=== PATIENT | male | born 1975 | race Caucasian/White ===

== ENCOUNTER 2020-10-27 07:07 | Outpatient (CLI) | payer BC ==
[~2020-10-27] VITALS: Ht 185.5 cm; Wt 90.9 kg
== END 2020-10-28 12:13 | disposition home or self-care (01) ==
LOC: PREOP 07:07
PROVIDERS: ATTEND Otolaryngology Otolaryngology/Facial Plastic Surgery
DX: Z01.818 Encounter for other preprocedural examination (principal)

== ENCOUNTER 2020-11-04 06:04 | Day surgery (SDC) | payer BC ==
[~2020-11-04] VITALS: Ht 185.5 cm; Wt 90.9 kg
[2020-11-04] VITALS (10 sets, daily range): BP systolic 118–143; BP diastolic 80–97
[2020-11-04] MEDS: LACTATED RINGERS 1,000 ML IV PRN ×2 (06:31→08:36)
[2020-11-04 06:40] LABS: BASOPHILS % (AUTO) 0 % (0-10); EOSINOPHILS # (AUTO) 0.1 10^3/uL (0.0-0.3); EOSINOPHILS % (AUTO) 2 % (0-10); HEMATOCRIT 45 % (40-54); HEMOGLOBIN 15.8 g/dL (13.3-17.7); LYMPHOCYTES # (AUTO) 2.8 10^3/uL (1.0-4.0); LYMPHOCYTES % (AUTO) 33 % (12-44); MEAN CORPUSCULAR HEMOGLOBIN 32 pg (25-34); MEAN CORPUSCULAR HGB CONC 35 g/dL (32-36); MEAN CORPUSCULAR VOLUME 90 fL (80-99); MONOCYTES # (AUTO) 0.7 10^3/uL (0.0-1.0); MONOCYTES % (AUTO) 9 % (0-12); NEUTROPHILS # (AUTO) 4.8 10^3/uL (1.8-7.8); NEUTROPHILS % (AUTO) 56 % (42-75); PLATELET COUNT 286 10^3/uL (130-400); WHITE BLOOD COUNT 8.5 10^3/uL (4.3-11.0)
[2020-11-04] MEDS ORDERED: SEVOFLURANE (ULTANE) 15 ML INHAL SOLN ONE (06:46)
[2020-11-04] MEDS ORDERED: proPOfol 200 MG/20 ML (DIPRIVAN) VIAL IV ONE (06:46)
[2020-11-04] MEDS ORDERED: MIDAZOLAM 2 MG/2 ML (VERSED) VIAL ONE (06:46)
[2020-11-04] MEDS ORDERED: ROCURONIUM 10 MG/ML 5 ML SYRINGE IV ONE (06:46)
[2020-11-04] MEDS ORDERED: ONDANSETRON 4 MG/2 ML (SDV) Z0FRAN ONE (06:46)
[2020-11-04] MEDS ORDERED: fentaNYL INJ 100 MCG/2 ML AMP ONE (06:47)
[2020-11-04] MEDS ORDERED: LIDOCAINE PF 2% 5 ML (XYLOCAINE) VIAL ONE (06:47)
--- NOTE | 2020-11-04 06:57 | Progress Note-Pre Operative ---
Pre-Operative Progress Note H&P Reviewed The H&P was reviewed, patient examined and no changes noted. Date Seen by Provider: Nov 04, 2020 Time Seen by Provider: 06:30 Date H&P Reviewed: Nov 04, 2020 Time H&P Reviewed: 06:30 Pre-Operative Diagnosis: Deviated Nasal Septum, Bilat Hyper of INf Turbs PHILOMENA BEYER MD Nov 04, 2020 06:57
[2020-11-04] MEDS ORDERED: BSS 15 ML ONE (07:06)
[2020-11-04] MEDS ORDERED: LIDOCAINE/EPI 1%-1:100,000 (XYLOCAINE) 20ML ONE (07:06)
[2020-11-04] MEDS ORDERED: PHENYLEPHRINE 0.5% NASAL SPR (NEO-SYNEPHRINE) REG ONE (07:06)
[2020-11-04] MEDS ORDERED: COCAINE HCL 4% 2 ML SYR ONE (07:06)
[2020-11-04] MEDS ORDERED: PHENYLEPHRINE 100 MCG/ML 10 ML (ANESTHESIA) SYR ONE (08:02)
[2020-11-04] MEDS ORDERED: NEOSTIGMINE 3 MG/3 ML VIAL ONE (08:12)
[2020-11-04] MEDS ORDERED: GLYCOPYRROLATE 0.2 MG/ML (ROBINUL) 2 ML VIAL ONE (08:12)
--- NOTE | 2020-11-04 08:24 | Progress Note-Post Operative ---
Post-Operative Progess Note Surgeon (s)/Apparel Merchandiser (s) Surgeon PHILOMENA BEYER MD Apparel Merchandiser n/a Pre-Operative Diagnosis Deviated Nasal Septum, Bilat Hyper of INf Turbs Post-Operative Diagnosis same Post-Op Procedure Note Date of Procedure: Nov 04, 2020 Name of Procedure Performed: Nasal Septoplsaty, Bilat Red of Inf Turbs Description & Findings Description and Findings: n/a Anesthesia Type get Estimated Blood Loss minimal Packing none. Specimen(s) collected/removed nasal septum PHILOMENA BEYER MD Nov 04, 2020 08:24
[2020-11-04] MEDS ORDERED: HYDROcodone/APAP 5 MG/325 MG (LORTAB) TAB PO PRN (08:30)
[2020-11-04] MEDS ORDERED: D5 1/2 NS W/KCL 20 MEQ/L 1,000 ML IV SCH (08:30)
[2020-11-04] MEDS ORDERED: PROMETHAZINE INJ 25 MG/ML (PHENERGAN) AMP IVP PRN (08:30)
[2020-11-04] MEDS ORDERED: ACETAMINOPHEN 325 MG TABLET PO PRN (08:30)
[2020-11-04] MEDS ORDERED: HYDROmorphone 2 MG/ML VIAL (DILAUDID) IV ONE (08:45)
[2020-11-04] MEDS ORDERED: ONDANSETRON 4 MG/2 ML (SDV) Z0FRAN IVP PRN (08:45)
--- NOTE | 2020-11-04 09:00 | Anesthesia-General Post-Op ---
General Patient Condition Mental Status/LOC: Same as Preop Cardiovascular: Satisfactory Nausea/Vomiting: Absent Respiratory: Satisfactory Pain: Controlled Complications: Absent Post Op Complications Complications None Follow Up Care/Instructions Patient Instructions None needed. Anesthesia/Patient Condition Patient Condition Patient is doing well, no complaints, stable vital signs, no apparent adverse anesthesia problems. No complications reported per nursing. D/C home per [facility] Criteria: Yes ESSIE COHN CRNA Nov 04, 2020 09:00
[2020-11-04] MEDS ORDERED: AMOX-355 PO (09:37)
[2020-11-04] MEDS ORDERED: ACHD5005 PO (09:37)
== END 2020-11-04 10:25 | disposition home or self-care (01) ==
LOC: SDC 06:04
PROVIDERS: ATTEND Otolaryngology Otolaryngology/Facial Plastic Surgery
DX: J34.2 Deviated nasal septum (principal); J34.3 Hypertrophy of nasal turbinates; Z86.16 Personal history of COVID-19
CPT/HCPCS: 36415; 85025; 87081

== ENCOUNTER 2021-03-29 14:48 | Outpatient (CLI) | payer BC ==
[~2021-03-29 14:48] MED LIST: ACHD5005 PO; AMOX-355 PO
== END 2021-03-29 15:02 ==
LOC: SLEEP 14:48
PROVIDERS: ATTEND Otolaryngology Otolaryngology/Facial Plastic Surgery
DX: G47.33 Obstructive sleep apnea (adult) (pediatric) (principal)
CPT/HCPCS: G0399